=== PATIENT | female | born 1995 | race Caucasian/White ===

== ENCOUNTER 2019-02-23 09:37 | Inpatient (IN) | payer OTHER ==
[2019-02-23] MEDS ORDERED: Docusate 100 MG CAP PO PRN (09:50)
[2019-02-23] MEDS ORDERED: Ondansetron PF 4 MG/2 ML Vial IVP PRN ×2 (09:50→14:40)
[2019-02-23] MEDS ORDERED: Ibuprofen 800 MG TAB PO PRN (09:50)
[2019-02-23] MEDS ORDERED: Lidocaine 1% (PF) 30 ML VIAL SC PRN (09:50)
[2019-02-23] MEDS ORDERED: Misoprostol 200 MCG TAB PR PRN (09:50)
[2019-02-23] MEDS ORDERED: NS / Oxytocin 40 units/1000ml 1,000 ML IV PRN (09:50)
[2019-02-23] MEDS ORDERED: Promethazine HCl 25 MG/ML VIAL IM PRN ×2 (09:50→14:40)
[2019-02-23] MEDS ORDERED: Acetaminophen 500 MG TAB PO PRN (09:50)
[2019-02-23] MEDS ORDERED: Diphenoxylate HCl/Atropine Tablet PO PRN ×2 (09:50)
[2019-02-23] MEDS ORDERED: HYDROcodone/Acetaminophen 5/325 mg Tablet PO PRN ×2 (09:50)
[2019-02-23] MEDS ORDERED: Butorphanol Tartrate 1 MG/ML VIAL SLOW IVP PRN (09:50)
[2019-02-23 10:11] VITALS: BMI 31.8
[2019-02-23 10:53] LABS: Hemoglobin 9.9 g/dL (12.0-16.0); Mean Corpuscular HGB CONC 33.3 g/dL (32.0-36.0); Mean Corpuscular Hemoglobin 27.1 pg (27.0-31.0); Mean Corpuscular Volume 81.5 fL (78.0-98.0); Mean Platelet Volume 7.6 fL (7.4-10.4); Platelet Count 230 thou/uL (130-400); RBC Distribution Width 12.2 % (11.5-14.5); Red Blood Cell (RBC) Count 3.64 mill/uL (4.20-5.40); White Blood Cell (WBC) Count 9.5 thou/uL (4.8-10.8)
[2019-02-23] MEDS ORDERED: Lidocaine 2% MPF 10 ML AMP (For Epidural Use) ONE (11:11)
[2019-02-23] MEDS ORDERED: Bupivacaine/Epinephrine 0.25% 30 ML VIAL ONE (11:11)
[2019-02-23 11:33] LABS: HBSAg Index 0.29 S/CO (0-0.99); Hep B Surf Ag Non-Reactive S/CO (NonReactive); Syphilis Antibody Nonreactive (Nonreactive); Syphilis Antibody Index 0.04 S/CO (<1.00 Non-Reactive)
[2019-02-23 12:15] LABS: Glucose 78 mg/dL (70-105)
[2019-02-23] MEDS ORDERED: Fentanyl 4 mcg/Bup 0.1% Cadd 100 ML ONE ×2 (13:41→20:57)
[2019-02-23] MEDS ORDERED: ePHEDrine/0.9% NaCl/PF SYRINGE 50 mg/10 ml SLOW IVP PRN (14:40)
[2019-02-23] MEDS ORDERED: Eucerin (Mineral Oil/Petrolatum,White) 30 gm Jar TOP PRN (14:40)
[2019-02-23] MEDS ORDERED: Naloxone HCl 0.4 mg/ml Vial IVP PRN ×2 (14:40)
[2019-02-23] MEDS ORDERED: diphenhydrAMINE 50 MG/ML VIAL IVP PRN (14:40)
[2019-02-23] MEDS ORDERED: Lactated Ringer's 500 ML IV PRN (14:40)
[2019-02-23] MEDS ORDERED: Acetaminophen 325 MG TAB PO PRN (14:40)
[2019-02-23] MEDS ORDERED: Communication Order-Pharmacy FS SCH (14:45)
[2019-02-23] MEDS ORDERED: Fentanyl 4 mcg/Bupivacaine 0.1% Cassette 100 ML EPIDURAL SCH (14:45)
[2019-02-23] MEDS: Lactated Ringer's 1,000 ML IV SCH ×2 (14:50→17:33)
[2019-02-23] MEDS ORDERED: NS w/ Oxytocin 10 units 500 ML ONE (15:47)
[2019-02-23] MEDS ORDERED: NS w/ Oxytocin 10 units 500 ML IV SCH (16:45)
[2019-02-23] MEDS ORDERED: Fentanyl 100 MCG/2 ML VIAL ONE (20:52)
[2019-02-24] MEDS: Lactated Ringer's 1,000 ML IV SCH ×2 (01:37→11:19)
[2019-02-24] MEDS ORDERED: Fentanyl 4 mcg/Bup 0.1% Cadd 100 ML ONE (03:26)
[2019-02-24] MEDS ORDERED: Acetaminophen 500 MG TAB PO PRN (04:14)
[2019-02-24] MEDS ORDERED: Lidocaine 1% (PF) 30 ML VIAL ONE (07:32)
[2019-02-24] MEDS ORDERED: Zolpidem Tartrate 5 MG TAB PO PRN (12:06)
[2019-02-24] MEDS ORDERED: Ondansetron PF 4 MG/2 ML Vial IVP PRN (12:06)
[2019-02-24] MEDS ORDERED: Milk Of Magnesia 30 ML UDCUP PO PRN (12:06)
[2019-02-24] MEDS ORDERED: Adacel (T-DAP) 0.5 ML SYRINGE IM ONE (12:06)
[2019-02-24] MEDS ORDERED: Bisacodyl 10 MG SUPP PR PRN (12:06)
[2019-02-24] MEDS ORDERED: Preparation H Ointment 28 GM TUBE PR PRN (12:06)
[2019-02-24] MEDS ORDERED: NS / Oxytocin 40 units/1000ml 1,000 ML IV SCH (12:06)
[2019-02-24] MEDS ORDERED: Lanolin Ointment 7 GM TUBE TOP PRN (12:06)
[2019-02-24] MEDS ORDERED: Misoprostol 200 MCG TAB VAG PRN (12:06)
[2019-02-24] MEDS ORDERED: Acetaminophen/Codeine 30-300mg Tablet PO PRN ×2 (12:06)
[2019-02-24] MEDS: Ibuprofen 800 MG TAB PO SCH ×2 (13:05→22:32)
[2019-02-24] MEDS: Ferrous Sulfate 325 MG TAB PO SCH (18:07)
[2019-02-24] MEDS ORDERED: Benzocaine-Menthol 82.5 ML CAN TOP PRN (18:23)
[2019-02-24] MEDS ORDERED: metFORMIN 500 MG TAB PO SCH (22:15)
[2019-02-24] MEDS: Docusate Calcium (SURFAK) 240 MG CAP PO SCH (22:32)
[2019-02-25] MEDS: Ibuprofen 800 MG TAB PO SCH ×3 (06:20→21:29)
[2019-02-25] MEDS ORDERED: metFORMIN 500 MG TAB PO SCH (06:30)
[2019-02-25] MEDS: Ferrous Sulfate 325 MG TAB PO SCH ×2 (09:23→16:59)
[2019-02-25] MEDS: Docusate Calcium (SURFAK) 240 MG CAP PO SCH ×2 (09:23→21:29)
[2019-02-25] MEDS: Prenatal Vitamin 1 TAB PO SCH (09:24)
[2019-02-25] MEDS: metFORMIN 500 MG TAB PO SCH (16:59)
[2019-02-26] MEDS: Ibuprofen 800 MG TAB PO SCH (06:51)
[2019-02-26] MEDS: metFORMIN 500 MG TAB PO SCH (09:26)
[2019-02-26] MEDS: Docusate Calcium (SURFAK) 240 MG CAP PO SCH (09:27)
[2019-02-26] MEDS: Ferrous Sulfate 325 MG TAB PO SCH (09:27)
[2019-02-26] MEDS: Prenatal Vitamin 1 TAB PO SCH (09:27)
[2019-02-26 10:05] VITALS: BP 122/72; TEMP 98.7
== END 2019-02-26 11:45 | disposition home or self-care (01) | DRG 807 ==
LOC: L&D 09:37 → 3SW 02-24 11:00 → EDSTATUS 03-13 09:10
PROVIDERS: ADMIT Obstetrics & Gynecology; ATTEND Obstetrics & Gynecology
PROC: 10D07Z6 Extraction of Products of Conception, Vacuum, Via Natural or Artificial Opening (ICD-10-PCS; principal; 2019-02-23)
PROC: 0KQM0ZZ Repair Perineum Muscle, Open Approach (ICD-10-PCS; 2019-02-23)
DX: O24.12 Pre-existing type 2 diabetes mellitus, in childbirth (principal); Z37.0 Single live birth; E11.9 Type 2 diabetes mellitus without complications; Z3A.37 37 weeks gestation of pregnancy; Z79.84 Long term (current) use of oral hypoglycemic drugs; O71.82 Other specified trauma to perineum and vulva
CPT/HCPCS: 36415; 36416; 51702; 82947; 85027; 86780; 86850; 86900; 86901; 87340; J2001; J2590; J3010

== ENCOUNTER 2021-01-03 13:01 | Outpatient (CLI) | payer OTHER ==
[2021-01-03 22:16] LABS: SARS-CoV-2 PCR by NAA Not Detected (NotDetected)
== END 2021-01-03 13:02 | disposition home or self-care (01) ==
LOC: LABBT 13:01
PROVIDERS: ATTEND Obstetrics & Gynecology
DX: Z20.822 Contact with and (suspected) exposure to COVID-19 (principal)
CPT/HCPCS: 87635; U0003; U0005